=== PATIENT | male | born 2000 | race American Indian/Alaskan Native ===

== ENCOUNTER 2021-10-30 22:16 | Emergency (ER) | payer OTHER ==
--- NOTE | 2021-10-31 00:46 | Emergency Department Report ---
HPI - General Chief Complaint: Allergic Reaction Time Seen by Provider: 10/30/21 23:16 - HPI HPI: Patient is a 21-year-old male presented ED with complaint of allergic reaction. States he got a tattoo earlier today and developed hives with shortness of b reath approximately 3 hours later while at home. Called EMS who arrived and administered Benadryl and Solu-Medrol in route to the hospital. He reports similar episodes in the past usually after exposure to chicken. States his symptoms are currently improved. ED Past Medical Hx - Past Medical History Previous Medical History?: No - Surgical History Past Surgical History?: No - Social History Smoking Status: Never Smoker Substance Use Type: None - Medications Home Medications: Home Medications Medication Instructions Recorded Confirmed Last Taken Type EPINEPHrine [Epipen] 0.3 mg IJ ONCE PRN #1 10/31/21 Unknown Rx ED Review of Systems ROS: Stated complaint: ALLERGIC REACTION Other details as noted in HPI Constitutional: denies: chills, fever Respiratory: denies: cough, shortness of breath, wheezing Cardiovascular: denies: chest pain, palpitations Endocrine: no symptoms reported Gastrointestinal: denies: abdominal pain, nausea, diarrhea Genitourinary: denies: urgency, dysuria Musculoskeletal: denies: back pain, joint swelling, arthralgia Skin: denies: rash, lesions Neurological: denies: headache, weakness, paresthesias Psychiatric: denies: anxiety, depression Physical Exam - Physical Exam Vital Signs: Vital Signs 10/30/21 22:17 Temperature 98 F Pulse Rate 79 Respiratory 18 Rate Blood Pressure 110/79 O2 Sat by Pulse 100 Oximetry Physical Exam: General: Alert and oriented x3, no acute distress Head: Normocephalic, atraumatic Eyes: PERRLA, EOMI ENT: Normal oropharynx, TMs clear Neck: Supple, nontender, no JVD, FROM Cardiac: Regular rate, regular rhythm, no murmurs, gallops or rubs Respiratory: Clear to auscultation bilaterally, no wheezes, rales, normal work of breathing Abdomen: Soft, nontender, nondistended, normal bowel sounds Urogenital: Exam deferred Musculoskeletal: Full range of motion in all extremities, no obvious deformities, no tenderness, normal strength Back: Nontender, no step-offs, Full range of motion Skin: Warm, dry, intact, appropriate for ethnicity, no rashes or lesions Neurological: Cranial nerves II through XII grossly intact Psych: Normal mood and affect ED Course Vital Signs 10/30/21 22:17 Temperature 98 F Pulse Rate 79 Respiratory 18 Rate Blood Pressure 110/79 O2 Sat by Pulse 100 Oximetry ED Medical Decision Making - Medical Decision Making Physical exam benign. Patient currently in no acute distress. He is stable for discharge home with return precautions. Will discharge home with Rx for EpiPen. Critical care attestation.: If time is entered above; I have spent that time in minutes in the direct care of this critically ill patient, excluding procedure time. ED Disposition Clinical Impression: Allergic reaction Disposition: HOME / SELF CARE / HOMELESS Is pt being admited?: No Condition: Stable Instructions: How to Use an Auto-Injector Pen, Allergies, Adult, [id number] Referrals: JAM SALAS MD [Primary Care Provider] - 3-5 Days
[2021-10-31 01:17] VITALS: BP 110/68
== END 2021-10-31 01:19 | disposition home or self-care (01) ==
LOC: ED 22:16
DX: T78.49XA Other allergy, initial encounter (principal); X58.XXXA Exposure to other specified factors, initial encounter
CPT/HCPCS: 99283